=== PATIENT | female | born 1955 | race Caucasian/White ===

== ENCOUNTER 2020-10-18 14:35 | Emergency (ER) | payer MEDICARE ==
[~2020-10-18] VITALS: Ht 175.3 cm; Wt 66.3 kg
--- NOTE | 2020-10-18 15:13 | NUR ---
PT BIB DAUGHTER VIA POV. PER PT SHE HAS JOINT PAIN IN BILAT ELBOWS AND BILAT KNEES. PT STATES THIS HAS BEEN GOING ON X 6 WEEKS. PER PT SHE WAS SEEN BY DOCTOR A COUPLE WEEKS AGO AND HAD US DONE TO RULE OUT DVT. PT STATES THE ONLY THING THAT HELPS THE PAIN IS BLACK VELVET ALCOHOL. PT STATES ONLY HX IS HTN. PT RESTING IN [place], DR. ROBLES AT BEDSIDE FOR EVAL, PT'S DAUGHTER AT BEDSIDE, NADN AT THIS TIME, WCTM.
[2020-10-18 17:19] VITALS: BP 139/81
== END 2020-10-18 17:21 | disposition home or self-care (01) ==
LOC: ED 17:15
DX: M19.011 Primary osteoarthritis, right shoulder (principal); M17.0 Bilateral primary osteoarthritis of knee; F17.200 Nicotine dependence, unspecified, uncomplicated
CPT/HCPCS: 99283; 99285